=== PATIENT | female | born 1995 | race Two or more races ===

== ENCOUNTER 2017-01-03 20:39 | Emergency (ER) | payer BC ==
[2017-01-03 20:54] VITALS: BP 144/96; PULSE 96; TEMP 99.3; BMI 39.5
--- NOTE | 2017-01-03 21:27 | PDOC ---
History of Present Illness - General Chief Complaint: Pain, Acute Stated Complaint: PAIN LEFT BREAST/NUMBNESS Time Seen by Provider: 01/03/17 21:03 - History of Present Illness Initial Comments: This 21-year-old woman with a history of uterine fibroids/obesity/anxiety but no other past medical history presents with one-month history of left breast swelling and tenderness. She has not had any nipple discharge or erythema of the breast/nipple. She has not noted any masses in her breast. She also states that she has not had a menstrual period since October 02 and has noted increased facial hair growth in the last few months. She has never had a diagnosis of polycystic ovary syndrome but believes that she might have it now. Patient also complaining of generalized weakness for the last few months. The patient currently does not have a general medical doctor or a emergency telecommunications dispatcher. History of breast cancer in 1 aunt; no other familial history of breast cancer Although the patient has not had diagnosis of diabetes or prediabetes, there is a strong family history of DM as well as hypertension 01/04/17 01:42 Past History - Past Medical History Allergies/Adverse Reactions: Allergies Allergy/AdvReac Type Severity Reaction Status Date / Time No Known Allergies Allergy Verified 01/03/17 20:40 Home Medications: Ambulatory Orders Zolpidem Tartrate [Ambien] 10 mg PO HS 01/03/17 Suicide Attempt (Hx): No Other medical history: ANXIETY - Immunization History Td Vaccination: Yes - Psycho/Social/Smoking Cessation Hx Anxiety: No Suicidal Ideation: No Smoking Status: No Smoking History: Former smoker Have you smoked in the past 12 months: Yes Number of Cigarettes Smoked Daily: 3 Information on smoking cessation initiated: Yes 'Breaking Loose' booklet given: 01/15/15 Hx Alcohol Use: No Drug/Substance Use Hx: Yes (MARIJUANA) Substance Use Type: None Review of Systems - Review of Systems Able to Perform ROS?: Yes Comments:: 12 point review of systems is negative except for what is noted in the history of present illness *Physical Exam - Vital Signs Last Vital Signs Temp Pulse Resp BP Pulse Ox 99.3 F 96 H 18 144/96 100 01/03/17 20:43 01/03/17 20:43 01/03/17 20:43 01/03/17 20:43 01/03/17 20:43 - Physical Exam Comments: Young adult female, morbidly obese, intermittently tearful but alert and oriented 3. No acute distress HEAD: No signs of trauma EYES: PERRLA, EOMI, sclera anicteric, conjunctiva clear NECK: Normal ROM, supple, no lymphadenopathy, JVD, or masses BREASTS: Right breast normal Left breastsmall pustule of inner upper quadrant without surrounding edema, erythema or fluctuance No significant palpable masses; nipple normal without evidence of crusting or discharge Mild generalized tenderness without focal area of marked tenderness No axillary masses or tenderness palpated LUNGS: Breath sounds clear and equal. No wheezes, and no crackles HEART: Regular rate and rhythm, normal S1 and S2, no murmurs, rubs or gallops ABDOMEN: Soft, nontender, normoactive bowel sounds. No guarding, no rebound. No masses EXTREMITIES: Normal range of motion, no edema. No clubbing or cyanosis. No cords, erythema, or tenderness NEUROLOGICAL: Cranial nerves II through XII grossly intact. Normal speech, normal gait SKIN: Warm, Dry, normal turgor, no rashes or lesions noted. ED Treatment Course - LABORATORY CBC & Chemistry Diagram: 01/03/17 22:45 01/03/17 22:45 Medical Decision Making - Medical Decision Making CBC/chemistry profile/UA/PGU evaluated in order to rule out , urinary tract infection, anemia, prediabetes (although patient is not fasting) Laboratory evaluation is essentially normal with no evidence of anemia; white blood cell count also was normal. Nonfasting glucose is 115 and remainder of the chemistry profile shows no gross abnormality. Urinalysis is normal without evidence of UTI. PGU is negative Results discussed with the patient. The importance of having a general medical doctor was emphasized to the patient. Dr. Interiano's referral information given to the patient. She should follow up within the next few days in order to further workup her breast pain as well as symptoms suggestive of PCOS. Also, the patient will research to see which gynecology group takes her insurance and will follow-up within 1-2 weeks with a emergency telecommunications dispatcher. Patient should return to the emergency room if she has worsening pain or develops fever/vomiting *DC/Admit/Observation/Transfer Diagnosis at time of Disposition: Breast pain, left - Discharge Dispostion Disposition: HOME Condition at time of disposition: Stable - Referrals Referrals: Tima Interiano MD [Staff Physician] - Call tomorrow - Patient Instructions Printed Discharge Instructions: DI for Breast Pain (Mastalgia) Additional Instructions: followup with general medical doctor(Dr Itneriano) within the next 5 days followup with emergency telecommunications dispatcher within 1-2 weeks return to ER if pain worsens or you develop fever/vomiting
[2017-01-03 22:21] LABS: PH,URINE 6.5 (4.5-8); URINE APPEARANCE Clear; URINE BILIRUBIN Negative (NEGATIVE); URINE BLOOD Negative (NEGATIVE); URINE GLUCOSE (UA) Negative (NEGATIVE); URINE KETONE Negative (NEGATIVE); URINE LEUK ESTERASE Negative (NEGATIVE); URINE NITRITE Negative (NEGATIVE); URINE PROTEIN Negative (NEGATIVE); URINE UROBILINOGEN 0.2 E.U/dl (0.2-1.0)
[2017-01-03 22:32] LABS: URINE COLOR YELLOW
[2017-01-03 23:13] LABS: BASOPHIL 0.1 % (0-2.0); EOSINOPHIL 1.1 % (0-4.5); MCH 25.4 pg (25.7-33.7); MCHC 33.1 g/dl (32.0-36.0); MEAN CELL VOLUME 76.7 fl (80-96); NEUTROPHILS 79.8 % (42.8-82.8); PLATELET COUNT 284 K/MM3 (134-434); RDW 12.7 % (11.6-15.6); WHITE BLOOD COUNT 9.6 K/mm3 (4.0-10.8)
[2017-01-03 23:17] LABS: ALBUMIN 4.1 g/dl (3.5-5.0); ALK PHOS 71 U/L (32-92); ANION GAP 10 (8-16); BILIRUBIN,TOTAL 0.2 mg/dl (0.2-1.0); CALCIUM 9.2 mg/dl (8.4-10.2); CO2 23 mmol/L (22-28); CREATININE 0.8 mg/dl (0.6-1.3); GLUCOSE,RANDOM 115 mg/dl (74-106); SGOT/AST 23 U/L (10-42); SGPT/ALT 19 U/L (10-40); TOT PROT 7.6 g/dl (6.4-8.3)
== END 2017-01-03 23:51 | disposition home or self-care (01) ==
LOC: FER 20:39
DX: N64.4 Mastodynia (principal); Z87.891 Personal history of nicotine dependence
CPT/HCPCS: 36415; 80053; 81003; 84703; 85025; 99281-25

== ENCOUNTER 2017-05-27 13:33 | Emergency (ER) | payer BC ==
[2017-05-27 13:37] VITALS: BMI 43.5
[2017-05-27] MEDS ORDERED: RANITIDINE HCL 150 MG TABLET (FP) PO ONE (14:33)
[2017-05-27] MEDS ORDERED: ONDANSETRON 4 MG TABLET PO ONE (14:33)
[2017-05-27] MEDS ORDERED: PANTOPRAZOLE 40 MG TABLET (FP) PO ONE (14:33)
[2017-05-27] MEDS ORDERED: ONDANSETRON *ODT* 4 MG TABLET ONE (14:39)
[2017-05-27] MEDS ORDERED: RANITIDINE HCL 150 MG TABLET (FP) ONE (14:39)
[2017-05-27] MEDS ORDERED: PANTOPRAZOLE 40 MG TABLET (FP) ONE (14:39)
--- NOTE | 2017-05-27 15:01 | PDOC ---
History of Present Illness - General Chief Complaint: Pain Stated Complaint: VOMITING, DIARRHEA Time Seen by Provider: 05/27/17 14:06 History Source: Patient Exam Limitations: No Limitations - History of Present Illness Initial Comments: 05/27/17 15:04 The patient is a 22 year old female, with a significant past medical history anxiety, who presents to the emergency department with 1 week hx of LUQ abdominal pain, 1 month hx of nausea/vomiting, and 1 day hx of diarrhea. Patient states she has been vomiting every morning for the last month. She states her LUQ pain is burning, intermittent, nonradiating. Patient also endorses chills, 1 episode of diarrhea (3x today). LMP: may 07 The patient denies chest pain, shortness of breath, headache and dizziness. Denies fever, dysuria, frequency, urgency and hematuria. Allergies: NKDA Past surgical history: Pinky surgery Social history: +marijuana PMD - Does not have one 05/27/17 15:31 Past History - Past Medical History Allergies/Adverse Reactions: Allergies Allergy/AdvReac Type Severity Reaction Status Date / Time No Known Allergies Allergy Verified 05/27/17 13:35 Home Medications: Ambulatory Orders Pantoprazole Sodium [Protonix] 40 mg PO DAILY #30 tablet. 05/27/17 Ranitidine HCl [Zantac] 150 mg PO BID #60 tablet 05/27/17 Other medical history: DENIES. - Immunization History Td Vaccination: Yes - Suicide/Smoking/Psychosocial Hx Smoking Status: No Smoking History: Never smoked Have you smoked in the past 12 months: Yes Number of Cigarettes Smoked Daily: 3 'Breaking Loose' booklet given: 01/15/15 Hx Alcohol Use: No Drug/Substance Use Hx: Yes (marijuana) Substance Use Type: Marijuana Review of Systems - Review of Systems Able to Perform ROS?: Yes Comments:: 05/27/17 15:01 GENERAL/CONSTITUTIONAL: No fever, +chills, No weakness. HEAD, EYES, EARS, NOSE AND THROAT: No change in vision. No ear pain or discharge. No sore throat. CARDIOVASCULAR: No chest pain or shortness of breath RESPIRATORY: No cough, wheezing, or hemoptysis. GASTROINTESTINAL: +nausea, vomiting, diarrhea, + abdominal pain GENITOURINARY: No dysuria, frequency, or change in urination. MUSCULOSKELETAL: No joint or muscle swelling or pain. No neck or back pain. SKIN: No rash NEUROLOGIC: No headache, vertigo, loss of consciousness, or change in strength/ sensation. ENDOCRINE: No increased thirst. No abnormal weight change HEMATOLOGIC/LYMPHATIC: No anemia, easy bleeding, or history of blood clots. ALLERGIC/IMMUNOLOGIC: No hives or skin allergy. *Physical Exam - Vital Signs Last Vital Signs Temp Pulse Resp BP Pulse Ox 98.9 F 79 18 134/82 100 05/27/17 13:34 05/27/17 13:34 05/27/17 13:34 05/27/17 13:34 05/27/17 13:34 - Physical Exam Comments: 05/27/17 15:03 GENERAL: Awake, alert, and fully oriented, in no acute distress HEAD: No signs of trauma, normocephalic, atraumatic, + hirsutism EYES: PERRLA, EOMI, sclera anicteric, conjunctiva clear ENT: Auricles normal inspection, hearing grossly normal, nares patent, oropharynx clear without exudates. Moist mucosa NECK: Normal ROM, supple, no lymphadenopathy, JVD, or masses LUNGS: No distress, speaks full sentences, clear to auscultation bilaterally HEART: Regular rate and rhythm, normal S1 and S2, no murmurs, rubs or gallops, peripheral pulses normal and equal bilaterally. ABDOMEN: Soft, +tenderness to palpation of LUQ along rib line, normoactive bowel sounds. No guarding, no rebound. No masses EXTREMITIES: Normal inspection, Normal range of motion, no edema. No clubbing or cyanosis. NEUROLOGICAL: Cranial nerves II through XII grossly intact. Normal speech, normal gait, no focal sensorimotor deficits SKIN: Warm, Dry, normal turgor, no rashes or lesions noted. ED Treatment Course - LABORATORY CBC & Chemistry Diagram: 05/27/17 15:03 05/27/17 15:03 - Medications Given in the ED: ED Medications Discontinued Medications Generic Name Dose Route Start Last Admin Trade Name Freq PRN Reason Stop Dose Admin Ondansetron HCl 4 mg 05/27/17 14:33 05/27/17 14:54 Zofran - PO 05/27/17 14:34 4 mg ONCE ONE Administration Pantoprazole Sodium 40 mg 05/27/17 14:33 05/27/17 14:54 Protonix - PO 05/27/17 14:34 40 mg ONCE ONE Administration Ranitidine HCl 150 mg 05/27/17 14:33 05/27/17 14:54 Zantac - PO 05/27/17 14:34 150 mg ONCE ONE Administration Medical Decision Making - Medical Decision Making 05/27/17 15:32 The patient is a 22 year old female, with a significant past medical history anxiety, who presents to the emergency department with 1 week hx of LUQ abdominal pain, 1 month hx of nausea/vomiting, and 1 day hx of diarrhea. Patient likely has gastritis vs PUD. Plan: CBC, CMP, UA, Upreg, UCx, Lipase, Zofran, Zantac, and Protonix 05/27/17 16:33 CBC, CMP unremarkable 05/27/17 18:23 UA, Upreg negative. Patient feels better and is stable for d/c. Will f/u with Dr. Tamez *DC/Admit/Observation/Transfer Diagnosis at time of Disposition: Gastritis Qualifiers: Gastritis type: unspecified gastritis Chronicity: chronic Gastritis bleeding: without bleeding Qualified Code(s): K29.50 - Unspecified chronic gastritis without bleeding; K29.50 - Unspecified chronic gastritis without bleeding - Discharge Dispostion Disposition: HOME - Prescriptions Prescriptions: Pantoprazole Sodium [Protonix] 40 mg PO DAILY #30 tablet. Ranitidine HCl [Zantac] 150 mg PO BID #60 tablet - Referrals Referrals: Fei Tamez MD [Staff Physician] - Timoteo Ray MD [Primary Care Provider] - - Patient Instructions Printed Discharge Instructions: DI for Gastritis Additional Instructions: Please follow up with Dr. Tamez. A referral has been provided. Please take the medications sent to your pharmacy as prescribed. If you have chest pain, shortness of breath, worsening nausea/vomiting, please come back to the hospital immediately. - Post Discharge Activity Forms/Work/School Notes: Back to Work
[2017-05-27 15:17] LABS: BASOPHIL 1.2 % (0-2.0); EOSINOPHIL 0.9 % (0-4.5); MCH 25.4 pg (25.7-33.7); MCHC 32.3 g/dl (32.0-36.0); MEAN CELL VOLUME 78.5 fl (80-96); NEUTROPHILS 69.4 % (42.8-82.8); PLATELET COUNT 265 K/MM3 (134-434); RDW 14.1 % (11.6-15.6); WHITE BLOOD COUNT 8.4 K/mm3 (4.0-10.0)
[2017-05-27 15:44] LABS: ALBUMIN 3.7 g/dl (3.4-5.0); ANION GAP 10 (8-16); BILIRUBIN,TOTAL 0.7 mg/dL (0.2-1.0); CALCIUM 9.1 mg/dL (8.5-10.1); CO2 23 mmol/L (21-32); CREATININE 0.8 mg/dL (0.55-1.02); GLUCOSE,RANDOM 108 mg/dL (74-106); SGOT/AST 19 U/L (15-37); SGPT/ALT 28 U/L (12-78); TOT PROT 7.3 g/dl (6.4-8.2)
[2017-05-27 15:45] LABS: ALK PHOS 79 U/L (45-117)
--- NOTE | 2017-05-27 15:57 | PDOC ---
Attending Attestation - Resident Resident Name: Tristen Hearn - ED Attending Attestation I have performed the following: I have examined & evaluated the patient, The case was reviewed & discussed with the resident, I agree w/resident's findings & plan, Exceptions are as noted - HPI HPI: 06/02/17 13:39 - Physicial Exam PE: ABD: TTP LUQ. No rebound, no guarding. - Medical Decision Making 05/27/17 15:52 A portion of this note was written by my scribe, under my supervision. Vital Signs Temp Pulse Resp BP Pulse Ox 98.9 F 79 18 134/82 100 05/27/17 13:34 05/27/17 13:34 05/27/17 13:34 05/27/17 13:34 05/27/17 13:34 22-year-old female with past medical history obesity resents with left upper quadrant pain for one year. Patient reported in which she eats spicy foods that she develops left upper quadrant burning sensation. Lately she's been having decreased appetite and nausea with some vomiting when she eats. Denies diarrhea. Patient reported that she has multiple ultrasounds of her right upper quadrant which was negative. I suspect the patient likely has peptic ulcer disease versus gastritis. The patient would likely benefit from initiation daily Protonix as well as when necessary H2-blockers. We will also need to refer the patient to a gastrologist for an endoscopy. Labs and reassess. If workup is negative, patient to be discharged.
[2017-05-27 18:11] LABS: URINE APPEARANCE SLCLOUDY; URINE BILIRUBIN NEGATIVE (NEGATIVE); URINE BLOOD NEGATIVE (NEGATIVE); URINE COLOR YELLOW; URINE GLUCOSE (UA) NEGATIVE (NEGATIVE); URINE KETONE NEGATIVE (NEGATIVE); URINE NITRITE NEGATIVE (NEGATIVE); URINE PROTEIN NEGATIVE (NEGATIVE); URINE UROBILINOGEN NEGATIVE mg/dL (0.2-1.0)
[2017-05-27 19:43] VITALS: BP 138/84; PULSE 84; TEMP 98.7
[2017-05-27 22:02] LABS: URINE LEUK ESTERASE Negative (NEGATIVE)
== END 2017-05-27 19:43 | disposition home or self-care (01) ==
LOC: JER 13:33
DX: K29.50 Unspecified chronic gastritis without bleeding (principal); F41.9 Anxiety disorder, unspecified
CPT/HCPCS: 36415; 80053; 81003; 83690; 84703; 85025; 87086; 99283-25

== ENCOUNTER 2017-07-23 21:47 | Emergency (ER) | payer BC ==
[2017-07-23 21:55] VITALS: BP 123/81; PULSE 118; TEMP 98.3; BMI 41.9
[2017-07-23 22:08] LABS: URINE APPEARANCE Slightly; URINE BILIRUBIN Negative (NEGATIVE); URINE BLOOD Negative (NEGATIVE); URINE GLUCOSE (UA) Negative (NEGATIVE); URINE KETONE Negative (NEGATIVE); URINE NITRITE Negative (NEGATIVE); URINE PROTEIN Negative (NEGATIVE); URINE UROBILINOGEN 0.2 (0.2-1.0)
[2017-07-23 22:09] LABS: URINE COLOR YELLOW; URINE LEUK ESTERASE TRACE (NEGATIVE)
--- NOTE | 2017-07-23 22:30 | PDOC ---
History of Present Illness - General Chief Complaint: Pain Stated Complaint: LT SIDED PAIN Time Seen by Provider: 07/23/17 22:15 History Source: Patient Exam Limitations: No Limitations - History of Present Illness Initial Comments: 07/23/17 22:56 This is a morbidly obese female who comes in complaining of left-sided abdominal pain with 1 year. Patient was seen for it in the past but said she never followed up. Patient also has not had an appointment with her OB doctor in the last year. However made an appointment for yesterday but did not keep it. Patient denies any vaginal discharge. Patient denies any fever, chills, nausea, vomiting, diarrhea. Patient describes the pain as dull and intermittent. Patient said she came in this evening because the pain was worse than usual tonight. PAST MEDICAL HISTORY: no significant history PAST SURGICAL HISTORY: no significant history FAMILY HISTORY: no pertinant history SOCIAL HISTORY: Pt lives with family and is employed. MEDICATIONS: reviewed ALLERGIES: As per nursing notes Review of Systems General: No fevers or chills, no weakness, no weight loss HEENT: No change in vision. No sore throat,. No ear pain CardioVascular: No chest pain or shortness of breath Respiratory:No cough, or wheezing. Gastrointestinal: no nausea, vomitting, diarrhea or constipation, No rectal bleeding, left-sided abdominal pain Genitourinary: No dysuria, hematuria, or frequency Musculoskeletal: No joint or muscle pain or swelling Neurologic: No headache, vertigo, dizziness or loss of consciousness Psychiatric: nor depression Skin: No rashes or easy bruising Endocrine: no increased thirst or abnormal weight change Allergic: no skin or latex allergy All other systems reviewed and normal Exam: General: Well-nourished well-developed individual, no acute distress HEENT: Throat: Normal, tonsils normal, no erythema or exudate Neck: Supple, no meningeal signs, no lymphadenopathy Eyes::Pupils equal reactive and round, extraocular motion intact Chest: Nontender to palpation Cardiac: S1-S2 normal, regular rate and rhythm, no murmurs rubs or gallops Respiratory: Lungs clear to auscultation bilateral Abdomen: Soft, nondistended, normal bowel sounds, mildly tender to palpation left side of abdomen, there is no guarding or rebound, there is no left flank or CVA tenderness either Extremities: Warm, dry, no cyanosis, clubbing, or edema Skin: No rashes Neuro: Alert and oriented x3, CN II - XII intact, nonfocal exam with normal strength, normal sensation, normal reflexes, normal gait, Psych: Normal mood and affect Medical decision making: This is a morbidly obese 22-year-old female who has had 1 year of intermittent left-sided abdominal pain. Urinalysis and urine was obtained CBC and comp metabolic profile will be sent Assessment and plan: This is a obese 22-year-old female who comes in complaining of 1 year of intermittent abdominal and flank pain. Patient had a workup including us CBC which would had a normal white count and no left shift. Patient's MCV was slightly low so discussed with patient the importance of following that up and making sure that she has been of iron in her diet. Otherwise her chemistries were unremarkable and her urinalysis did show a few red cells and white cells in the moderate amount of epithelial cells so the specimen was not a clean catch however there was no bacteria and told patient to have it repeated by her primary care doctor. Patient discharged home will follow-up with her primary care doctor Past History - Past Medical History Allergies/Adverse Reactions: Allergies Allergy/AdvReac Type Severity Reaction Status Date / Time No Known Allergies Allergy Verified 05/27/17 13:35 Home Medications: Ambulatory Orders NK [No Known Home Medication] 07/23/17 COPD: No - Immunization History Td Vaccination: Yes - Suicide/Smoking/Psychosocial Hx Smoking Status: No Smoking History: Current every day smoker Have you smoked in the past 12 months: Yes Number of Cigarettes Smoked Daily: 0 Information on smoking cessation initiated: Yes 'Breaking Loose' booklet given: 07/23/17 Hx Alcohol Use: No Drug/Substance Use Hx: Yes (CANNIBIS) Substance Use Type: Marijuana *Physical Exam - Vital Signs Last Vital Signs Temp Pulse Resp BP Pulse Ox 98.3 F 118 H 16 123/81 100 07/23/17 21:52 07/23/17 21:52 07/23/17 21:52 07/23/17 21:52 07/23/17 21:52 ED Treatment Course - LABORATORY CBC & Chemistry Diagram: 07/23/17 23:05 07/23/17 23:05 - ADDITIONAL ORDERS Additional order review: Laboratory Results 07/23/17 22:00 Urine Color Yellow Urine Appearance Slightly Urine pH 6.0 Ur Specific [place] 1.025 Urine Protein Negative Urine Glucose (UA) Negative Urine Ketones Negative Urine Blood Negative Urine Nitrite Negative Urine Bilirubin Negative Urine Urobilinogen 0.2 Ur Leukocyte Esterase Trace H *DC/Admit/Observation/Transfer Diagnosis at time of Disposition: Chronic abdominal pain - Discharge Dispostion Disposition: HOME Condition at time of disposition: Stable Admit: No - Referrals - Patient Instructions Additional Instructions: It is important that you keep your appointment with your OB and also make an appointment with your primary care doctor The red cells are smaller than normal which could indicate that you aren't getting enough iron so follow-up with your primary care doctor for further evaluation. Return to the emergency department immediately with ANY new, persistent or worsening symptoms. Continue any medications as previously prescribed by your physician. You should follow up with your primary doctor as soon as possible regarding today's emergency department visit. . Please make sure your doctor reviews the results of your emergency evaluation. Thank you for coming to the Emergency Department today for your care. It was a pleasure to see you today. Please note that your evaluation is INCOMPLETE until you follow-up with your doctor. - Post Discharge Activity
[2017-07-23 22:55] LABS: URINE RBC 0-3 /hpf (0-3)
[2017-07-23 23:22] LABS: BASOPHIL 1.8 % (0-2.0); MCH 25.5 pg (25.7-33.7); MCHC 33.1 g/dl (32.0-36.0); MEAN CELL VOLUME 77.2 fl (80-96); MEAN PLT VOLUME 9.4 fl (7.5-11.1); NEUTROPHILS 69.6 % (42.8-82.8); PLATELET COUNT 254 K/MM3 (134-434); RDW 13.1 % (11.6-15.6); WHITE BLOOD COUNT 8.7 K/mm3 (4.0-10.8)
[2017-07-23 23:27] LABS: ALBUMIN 3.9 g/dl (3.5-5.0); ALK PHOS 67 U/L (32-92); ANION GAP 5 (8-16); BILIRUBIN,TOTAL 0.1 mg/dl (0.2-1.0); CALCIUM 9.1 mg/dl (8.4-10.2); CO2 25 mmol/L (22-28); CREATININE 0.8 mg/dl (0.6-1.3); GLUCOSE,RANDOM 97 mg/dl (74-106); SGOT/AST 17 U/L (10-42); SGPT/ALT 22 U/L (10-40); TOT PROT 6.8 g/dl (6.4-8.3)
== END 2017-07-23 23:43 | disposition home or self-care (01) ==
LOC: FER 21:47
DX: R10.9 Unspecified abdominal pain (principal); G89.29 Other chronic pain; E66.01 Morbid (severe) obesity due to excess calories; Z68.41 Body mass index [BMI] 40.0-44.9, adult
CPT/HCPCS: 36415; 80053; 81003; 81015; 84703; 85025; 99282-25

== ENCOUNTER 2017-08-12 13:07 | Emergency (ER) | payer BC ==
[2017-08-12 13:23] VITALS: BP 125/90; PULSE 86; TEMP 98.3; BMI 38.7
--- NOTE | 2017-08-12 14:36 | PDOC ---
History of Present Illness - General Chief Complaint: Pain, Acute Stated Complaint: RT SIDE PAIN Time Seen by Provider: 08/12/17 14:22 - History of Present Illness Initial Comments: 08/12/17 14:42 The patient is a 22 year old female with a history of anxiety who presents for evaluation of nausea and abdominal pain. The patient reports a 1 year history of left sided twisting, burning abdominal pain with associated nausea and occasional non-bloody, non-bilious vomiting. The patient has had similar presentations in the past with negative work ups. She states that she has not followed up with a GI specialist and only recently established care with a primary care physician. She states that today she is experiencing some right sided abdominal pain similar to her left sided abdominal pain prompting her presentation to the ED for evaluation. She reports some occasional subjective fevers as well as some constipation. She reports that her symptoms were worse after consuming milk 1 week ago. She also endorses some occasional cloudy urine , but denies any pain with urination. Past History - Past Medical History Allergies/Adverse Reactions: Allergies Allergy/AdvReac Type Severity Reaction Status Date / Time No Known Allergies Allergy Verified 08/12/17 13:17 Home Medications: Ambulatory Orders Pantoprazole Sodium [Protonix -] 40 mg PO DAILY #30 tablet.ec 08/12/17 COPD: No - Immunization History Td Vaccination: Yes - Suicide/Smoking/Psychosocial Hx Smoking Status: No Smoking History: Current every day smoker Have you smoked in the past 12 months: Yes Number of Cigarettes Smoked Daily: 0 Information on smoking cessation initiated: Yes 'Breaking Loose' booklet given: 08/12/17 Hx Alcohol Use: No Drug/Substance Use Hx: No Substance Use Type: Marijuana Review of Systems - Review of Systems Comments:: 08/12/17 14:48 Constitutional: Subjective fevers. No chills, fatigue, malaise HEENT: No Rhinorrhea, nasal congestion, Cardiovascular: No chest pain, syncope, palpitations, lightheadedness Respiratory: No Cough, SOB, Hemoptysis, Gastrointestinal: Abdominal pain, nausea, vomiting, constipation. No Diarrhea, Melena Genitourinary: Cloudy urine. No Dysuria, Frequency, Urgency, Hesitancy, Hematuria, Flank pain Musculoskeletal: No Myalgia, arthralgia Skin: No rashes, bruising, pallor Neurologic: No Headache, Dizziness, Numbness, Weakness, or Tingling Psychiatric: No Hallucinations. No SI or HI *Physical Exam - Vital Signs Last Vital Signs Temp Pulse Resp BP Pulse Ox 98.3 F 86 18 125/90 98 08/12/17 13:17 08/12/17 13:17 08/12/17 13:17 08/12/17 13:17 08/12/17 13:17 - Physical Exam Comments: 08/12/17 14:49 General Appearance: Nourished. No Apparent Distress HEENT: EOMI, ZULEYKA. No Pharyngeal Erythema, Tonsillar Exudate, Tonsillar Erythema Neck: No Cervical Lymphadenopathy Respiratory/Chest: Lungs Clear, Normal Breath Sounds. No Crackles, Rales, Rhonchi, Wheezing Cardiovascular: Regular Rhythm, Regular Rate. No Murmur, Gallops, Rubs Gastrointestinal/Abdominal: Normal Bowel Sounds, Soft. No Guarding, Rebound, Tenderness Musculoskeletal: No CVA Tenderness Extremity: Normal Capillary Refill Integumentary: Normal Color, Dry, Warm Neurologic: Fully Oriented, Alert, Normal Mood/Affect, Normal Response, ED Treatment Course - LABORATORY CBC & Chemistry Diagram: 08/12/17 15:15 08/12/17 15:15 Medical Decision Making - Medical Decision Making 08/12/17 14:53 The patient is a 22 year old female with a history of anxiety who presents for evaluation of nausea and abdominal pain. Differential includes but is not limited to: Gastritis, gastroenteritis, pancreatitis, infectious, metabolic derangement. Given the patient's physical exam and similar presentations in the past, it is likely the patient's symptoms are due to a gastritis or gastroenteritis. However, we will obtain a cbc, cmp, lipase, urine preg, UA to evaluate for other etiologies. We will treat with iv fluids, pepcid, zofran, protonix and continue to monitor and reassess. 08/12/17 18:07 CBC, cmp, lipase, UA, urine preg are unremarkable. The patient reports significant improvement in her symptoms. We are comfortable discharging the patient home at this time with PCP and GI follow up. We have sent a prescription for protonix for home management of her symptoms as well. We discussed the results and the plan with the patient who voiced understanding and is agreeable with the plan. *DC/Admit/Observation/Transfer Diagnosis at time of Disposition: Gastritis Qualifiers: Gastritis type: unspecified gastritis Chronicity: unspecified Gastritis bleeding: presence of bleeding unspecified Qualified Code(s): K29.70 - Gastritis , unspecified, without bleeding - Discharge Dispostion Disposition: HOME Condition at time of disposition: Improved - Prescriptions Prescriptions: Pantoprazole Sodium [Protonix -] 40 mg PO DAILY #30 tablet.ec - Referrals Referrals: Bhaskar Wisdom MD [Primary Care Provider] - Buster London MD [Staff Physician] - - Patient Instructions Printed Discharge Instructions: DI for Gastritis Additional Instructions: Please return to the ER if you experience concerning or worsening symptoms including worsening pain, difficulty breathing, or fevers. You were seen in the ER for abdominal pain. Your lab results were normal here in the ER. We have sent a prescription for Protonix to your pharmacy which you should take 40mg daily. It is important that you call to schedule a follow up appointment with a GI specialist within 1 week to discuss further management of your symptoms. We have provided a number for one in your discharge instructions. Please also call to schedule a follow up appointment with your primary care provider to discuss your ER visit with in 1 week. - Post Discharge Activity
[2017-08-12] MEDS ORDERED: FAMOTIDINE 20 MG/50 ML IVPB 20 MG/50 ML MG IVPB ONE ×2 (14:37→15:19)
[2017-08-12] MEDS ORDERED: ONDANSETRON 4 MG/2 ML VIAL IVPUSH ONE (14:37)
[2017-08-12] MEDS ORDERED: SODIUM CHLORIDE 1,000 ML IV STA (14:37)
[2017-08-12] MEDS ORDERED: PANTOPRAZOLE SODIUM 40 MG VIAL IVPUSH ONE (14:52)
[2017-08-12] MEDS ORDERED: ONDANSETRON 4 MG/2 ML VIAL ONE (15:19)
[2017-08-12] MEDS ORDERED: PANTOPRAZOLE SODIUM 40 MG/100 ML BAG IVPB ONE (15:19)
[2017-08-12 15:26] LABS: BASO # 0.1 # (0.1-1); BASO % 0.6 % (0-2.0); EOS # 0.1 # (0-4.5); EOS % 0.8 % (0-4.5); LYMPH # 1.9 (8-40); MCH 24.9 pg (25.7-33.7); MCHC 32.4 g/dl (32.0-36.0); MEAN CELL VOLUME 76.7 fl (80-96); MEAN PLT VOLUME 9.1 fl (7.5-11.1); MONO # 0.5 # (3.8-10.2); NEUT % 73.5 % (42.8-82.8); PLATELET COUNT 287 K/MM3 (134-434); RDW 13.6 % (11.6-15.6); WHITE BLOOD COUNT 9.6 K/mm3 (4.0-10.0)
[2017-08-12 15:43] LABS: ALBUMIN 3.8 g/dl (3.4-5.0); ALK PHOS 85 U/L (45-117); ANION GAP 7 (8-16); BILIRUBIN,TOTAL 0.7 mg/dL (0.2-1.0); CALCIUM 9.2 mg/dL (8.5-10.1); CO2 26 mmol/L (21-32); CREATININE 0.7 mg/dL (0.55-1.02); GLUCOSE,RANDOM 92 mg/dL (74-106); SGOT/AST 12 U/L (15-37); SGPT/ALT 20 U/L (12-78); TOT PROT 7.5 g/dl (6.4-8.2)
--- NOTE | 2017-08-12 16:26 | PDOC ---
Attending Attestation - Resident Resident Name: Ramirez Wiseel - ED Attending Attestation I have performed the following: I have examined & evaluated the patient, The case was reviewed & discussed with the resident, I agree w/resident's findings & plan, Exceptions are as noted - HPI HPI: 08/12/17 16:22 22-year-old female with past medical history of gastritis presents to the emergency department with persistent abdominal pain. Patient is known to me from prior visit and has a history that I suspect likely secondary to gastritis versus peptic ulcer disease. The patient reports that she has a primary care physician and is waiting to be seen by natural developer. She has since then from her prior visit with me stop taking her Protonix. States she has intermittent and abdominal discomfort with some intermittent nausea that is similar to her prior visits. Has typically been left upper quadrant but has been more in the right upper quadrant for the last week. Not associated with eating, fevers or chills. Patient came to the ED for further evaluation. - Physicial Exam PE: 08/12/17 16:25 GENERAL: Awake, alert, and fully oriented, in no acute distress. HEAD: No signs of trauma EYES: PERRLA, EOMI, sclera anicteric, conjunctiva clear ENT: Auricles normal inspection, hearing grossly normal, nares patent NECK: Normal ROM, supple LUNGS: Breath sounds equal, clear to auscultation bilaterally. No wheezes, and no crackles HEART: Regular rate and rhythm, normal S1 and S2, no murmurs, rubs or gallops ABDOMEN: Soft, nontender, normoactive bowel sounds. No guarding, no rebound. No masses EXTREMITIES: Normal range of motion, no edema. No clubbing or cyanosis. No cords, erythema, or tenderness NEUROLOGICAL: Cranial nerves II through XII grossly intact. Normal speech, normal gait SKIN: Warm, Dry, normal turgor, no rashes or lesions noted. - Medical Decision Making 08/12/17 16:25 Vital Signs Temp Pulse Resp BP Pulse Ox 98.3 F 86 18 125/90 98 08/12/17 13:17 08/12/17 13:17 08/12/17 13:17 08/12/17 13:17 08/12/17 13:17 I suspect the abdominal discomfort again is likely due to her gastritis. However , we'll obtain labs and treat symptoms with GERD medications. If workup is unremarkable the patient reports feeling better, we advised patient to be discharged with Protonix and have her follow-up with her primary care physician and GI.
[2017-08-12 17:58] LABS: URINE APPEARANCE SLCLOUDY; URINE BILIRUBIN NEGATIVE (NEGATIVE); URINE BLOOD NEGATIVE (NEGATIVE); URINE COLOR YELLOW; URINE GLUCOSE (UA) NEGATIVE (NEGATIVE); URINE KETONE NEGATIVE (NEGATIVE); URINE LEUK ESTERASE NEGATIVE (NEGATIVE); URINE NITRITE NEGATIVE (NEGATIVE); URINE PROTEIN NEGATIVE (NEGATIVE); URINE UROBILINOGEN NEGATIVE mg/dL (0.2-1.0)
[2017-08-12 20:16] LABS: URINE LEUK ESTERASE Negative (NEGATIVE)
== END 2017-08-12 19:21 | disposition home or self-care (01) ==
LOC: JER 13:07
PROC: 3E0337Z Introduction of Electrolytic and Water Balance Substance into Peripheral Vein, Percutaneous Approach (ICD-10-PCS; principal; 2017-08-12)
PROC: 3E033GC Introduction of Other Therapeutic Substance into Peripheral Vein, Percutaneous Approach (ICD-10-PCS; 2017-08-12)
PROC: 3E033GC Introduction of Other Therapeutic Substance into Peripheral Vein, Percutaneous Approach (ICD-10-PCS; 2017-08-12)
PROC: 3E033GC Introduction of Other Therapeutic Substance into Peripheral Vein, Percutaneous Approach (ICD-10-PCS; 2017-08-12)
DX: K29.70 Gastritis, unspecified, without bleeding (principal); F41.9 Anxiety disorder, unspecified; F17.210 Nicotine dependence, cigarettes, uncomplicated
CPT/HCPCS: 36415; 80053; 81003; 83690; 84703; 85025; 99282-25

== ENCOUNTER 2017-09-01 07:14 | Day surgery (SDC) | payer BC ==
[2017-08-31 13:43] VITALS: BMI 37.1
[2017-09-01] MEDS ORDERED: PROPOFOL 20 ML ONE ×5 (08:05)
[2017-09-01] MEDS ORDERED: LIDOCAINE HCL/PF 2% SDV 5ML VIAL ONE (08:05)
[2017-09-01] MEDS ORDERED: LIDOCAINE HCL 2% (20ML MULTI-DOSE VIAL) NR ONE (08:07)
[2017-09-01] MEDS ORDERED: LIDOCAINE HCL/PF 1% SDV 5ML VIAL ONE (08:07)
[2017-09-01] MEDS ORDERED: LIDOCAINE HCL 2% 100 MG/5 ML DISP.SYRIN ONE (08:07)
[2017-09-01 09:27] VITALS: TEMP 98.3
[2017-09-01 10:17] VITALS: BP 114/66; PULSE 87
--- NOTE | 2017-09-02 16:11 | PATH ---
Surgical Pathology Report Patient Name: PEPE SANTILLAN [facility]. Rec. #: [id number] /Age/Gender: 1995 (Age: 22) / F Account: [id number] Location: [facility]SU-ENDOSCOPY Taken: 09/01/2017 Received: 09/01/2017 Reported: 09/02/2017 Physicians: Buster London M.D. Specimen(s) Received A: BX DUODENUM B: BX ANTRUM C: BX ESOPHAGUS EG JUNCTION D: BX TERMINAL ILEUM E: BX ASCENDING COLON F: BX DESCENDING COLON G: BX SIGMOID Clinical History Preoperative diagnosis: Abdominal pain Postoperative diagnosis: Gastritis, normal colon, abdominal pain Final Diagnosis A. DUODENUM, SECOND PORTION, BIOPSY: DUODENAL MUCOSA WITHOUT SIGNIFICANT PATHOLOGIC FINDINGS. B. STOMACH, ANTRUM AND BODY, BIOPSY: GASTRIC ANTRAL AND BODY MUCOSA WITH MILD CHRONIC GASTRITIS. IMMUNOHISTOCHEMICAL STAIN FOR H. PYLORI IS NEGATIVE. C. ESOPHAGUS, GASTROESOPHAGEAL (EG) JUNCTION BIOPSY: SQUAMOCOLUMNAR MUCOSA WITH MILD CHRONIC INFLAMMATION AND CHANGES OF MILD REFLUX ESOPHAGITIS. NO INTESTINAL METAPLASIA OR DYSPLASIA IDENTIFIED. D. TERMINAL ILEUM, BIOPSY: SMALL BOWEL/ILEAL MUCOSA WITHOUT SIGNIFICANT PATHOLOGIC FINDINGS. E. ASCENDING COLON, BIOPSY: COLONIC MUCOSA WITHOUT SIGNIFICANT PATHOLOGIC FINDINGS. F. DESCENDING COLON, BIOPSY: COLONIC MUCOSA WITHOUT SIGNIFICANT PATHOLOGIC FINDINGS. G. SIGMOID COLON, BIOPSY: COLONIC MUCOSA WITHOUT SIGNIFICANT PATHOLOGIC FINDINGS. Electronically Signed Alcira Gonzalez M.D. Gross Description A. Received in formalin, labeled "biopsy second portion of duodenum" are 2 paez, irregular portions of soft tissue measuring 0.2 and 0.3 cm. in greatest dimension. The specimens are submitted in toto in one cassette. B. Received in formalin, labeled "biopsy antrum and body" are 3 paez, irregular portions of soft tissue ranging from 0.3-0.4 cm. in greatest dimension. The specimens are submitted in toto in one cassette. C. Received in formalin, labeled "biopsy EG junction" is a paez, irregular portion of soft tissue measuring 0.3 cm. in greatest dimension. The specimen is submitted in toto in one cassette. D. Received in formalin, labeled "biopsy terminal ileum" is a paez, irregular portion of soft tissue measuring 0.4 cm. in greatest dimension. The specimen is submitted in toto in one cassette. E. Received in formalin, labeled "biopsy ascending colon" are 2 paez, irregular portions of soft tissue averaging 0.2 cm. in greatest dimension. The specimens are submitted in toto in one cassette. F. Received in formalin, labeled "biopsy descending colon" is a paez, irregular portion of soft tissue measuring 0.4 cm. in greatest dimension. The specimen is submitted in toto in one cassette. G. Received in formalin, labeled "biopsy sigmoid colon" is a paez, irregular portion of soft tissue measuring 0.4 cm. in greatest dimension. The specimen is submitted in toto in one cassette. 09/01/2017 [facility]09/01/2017
== END 2017-09-01 10:17 | disposition home or self-care (01) ==
LOC: JASU-ENDO 07:14
PROVIDERS: ATTEND Internal Medicine Gastroenterology
PROC: 0DB68ZX Excision of Stomach, Via Natural or Artificial Opening Endoscopic, Diagnostic (ICD-10-PCS; 2017-09-01)
PROC: 0DB48ZX Excision of Esophagogastric Junction, Via Natural or Artificial Opening Endoscopic, Diagnostic (ICD-10-PCS; 2017-09-01)
PROC: 0DBK8ZX Excision of Ascending Colon, Via Natural or Artificial Opening Endoscopic, Diagnostic (ICD-10-PCS; 2017-09-01)
PROC: 0DBL8ZX Excision of Transverse Colon, Via Natural or Artificial Opening Endoscopic, Diagnostic (ICD-10-PCS; 2017-09-01)
PROC: 0DBN8ZX Excision of Sigmoid Colon, Via Natural or Artificial Opening Endoscopic, Diagnostic (ICD-10-PCS; 2017-09-01)
PROC: 0DBP8ZX Excision of Rectum, Via Natural or Artificial Opening Endoscopic, Diagnostic (ICD-10-PCS; 2017-09-01)
PROC: 0DBB8ZX Excision of Ileum, Via Natural or Artificial Opening Endoscopic, Diagnostic (ICD-10-PCS; 2017-09-01)
PROC: 0DBM8ZX Excision of Descending Colon, Via Natural or Artificial Opening Endoscopic, Diagnostic (ICD-10-PCS; 2017-09-01)
PROC: 0DBH8ZX Excision of Cecum, Via Natural or Artificial Opening Endoscopic, Diagnostic (ICD-10-PCS; 2017-09-01)
PROC: 0DB98ZX Excision of Duodenum, Via Natural or Artificial Opening Endoscopic, Diagnostic (ICD-10-PCS; principal; 2017-09-01 09:00)
DX: K92.1 Melena (principal); K25.9 Gastric ulcer, unspecified as acute or chronic, without hemorrhage or perforation; K29.70 Gastritis, unspecified, without bleeding
CPT/HCPCS: 84703; 88305-TC; 88342-TC